=== PATIENT | female | born 1970 | race African-American/Black ===

== ENCOUNTER 2024-09-08 06:35 | Emergency (ER) | payer BC ==
[~2024-09-08] VITALS: Ht 170.2 cm; Wt 87.1 kg
[2024-09-08 07:04] VITALS: PULSE 53; RESP 18; TEMP 97.4; O2SAT 99
[2024-09-08] MEDS ORDERED: LIDOCAINE HCL 2% 2 ML AMP INJ ONE (07:15)
[2024-09-08] MEDS: LIDOCAINE HCL 2% LOCAL INJ 5 ML SDV VIAL INJ ONE (08:04)
[2024-09-08] MEDS: TETANUS/DIPHTHERIA TOX ADULT 0.5 ML SYR IM ONE (08:09)
[2024-09-08] MEDS: NEOMYCIN/POLYMYX/BACITR OINT 0.9 GM PKT TOP ONE (08:30)
== END 2024-09-08 08:37 | disposition home or self-care (01) ==
LOC: ER 06:59
DX: S61.211A Laceration without foreign body of left index finger without damage to nail, initial encounter (principal); W26.0XXA Contact with knife, initial encounter; Y92.89 Other specified places as the place of occurrence of the external cause
CPT/HCPCS: 12001; 73130; 90471; 90714; 99283; J2003